=== PATIENT | male | born 1980 | race Caucasian/White ===

== ENCOUNTER 2020-07-17 17:10 | Emergency (ER) | payer BC, OTHER | END 2020-07-17 17:57 | disposition home or self-care (01) | LOC: ER1 17:10 | DX: T18.128A Food in esophagus causing other injury, initial encounter (principal); F17.220 Nicotine dependence, chewing tobacco, uncomplicated; W45.8XXA Other foreign body or object entering through skin, initial encounter | CPT/HCPCS: 99283 ==

== ENCOUNTER 2021-11-18 04:55 | Emergency (ER) | payer SELFPAY ==
[2021-11-18 05:46] LABS: HEMOGLOBIN 16.1 gm/dl (14.0-17.5); RED BLOOD COUNT 5.28 M/UL (4.20-5.50); WHITE BLOOD COUNT 8.6 K/UL (4.5-11.0)
[2021-11-18 06:08] LABS: BUN/CREATININE RATIO 12 (0-10)
== END 2021-11-18 11:07 | disposition home or self-care (01) ==
LOC: ER1 04:55
PROVIDERS: Family Medicine
DX: T40.601A Poisoning by unspecified narcotics, accidental (unintentional), initial encounter (principal); F17.200 Nicotine dependence, unspecified, uncomplicated
CPT/HCPCS: 71045; 80053; 82550; 82553; 84484; 85025; 93005; 99284